=== PATIENT | female | born 1995 | race Caucasian/White ===

== ENCOUNTER 2022-09-13 08:30 | Outpatient (REF) | payer BC, SELFPAY | END 2022-09-13 08:31 | disposition home or self-care (01) | LOC: HO.WFDLDS 08:30 | PROVIDERS: Visit Provider Nurse Practitioner Family | DX: Z00.00 Encounter for general adult medical examination without abnormal findings (principal); Z11.4 Encounter for screening for human immunodeficiency virus [HIV]; E78.00 Pure hypercholesterolemia, unspecified | CPT/HCPCS: 36415; 80053; 80061; 81003; 84443; 85025; 86704; 86706; 86780; 86803; 87340; 87389 ==

== ENCOUNTER 2022-09-27 08:42 | Outpatient (REF) | payer BC, SELFPAY ==
[2022-09-27 14:36] LABS: CT PCR NOT DETECTED (Not Detect.); NG PCR NOT DETECTED (Not Detect.)
== END 2022-09-27 08:43 | disposition home or self-care (01) ==
LOC: HO.WFDLDS 08:42
PROVIDERS: Visit Provider Nurse Practitioner Family
DX: Z13.89 Encounter for screening for other disorder (principal)
CPT/HCPCS: 0353U

== ENCOUNTER 2022-10-01 13:29 | Outpatient (AMB) | payer BC, SELFPAY ==
--- NOTE | 2022-10-01 13:30 | MHC.PC.OV ---
Vital Signs 10/01/22 13:31 Height 5 ft 9 in Weight 203 lb 4 oz BMI 30.0 BP 118/78 Blood Pressure Location Lt brachial Position Sitting Pulse 96 Pulse Source Pulse Oximeter Pulse Oximetry (%) 98 Intake Visit Reasons: 1 mos labs review Intake Note: pt is here for f/u labs Supervisor [employer] Shop Required: No Accompanied by: Self / Same As Patient Allergies Seasonal Allergies Allergy (Intermediate, Verified 10/01/22 13:59) Itchy Eyes Medication List - Last Reconciled 10/01/22 by Adriano Avila CNP levonorgestrel (Mirena) intrauterine metronidazole 0.75% 1 appl topical BID Tobacco use date assessed: 08/31/22 Dental Screening Dental Screen Date: 10/01/22 Did you have a dental visit in the last 12 months?: Yes Did you have a dental problem in the last 6 months where you did not have access to dental care?: No Was dental information given to patient?: Patient has dentist HPI HPI Comments History of Present Illness Details 27-year-old female presents for review of recent blood work. She offers no complaints. She states that she has an appointment with gynecology for Pap smear testing November. [facility] Medical History Asthma High cholesterol Perioral dermatitis Sinusitis Surgical History No pertinent past surgical history Family History Mother Asthma High blood pressure High cholesterol Melanoma Father High blood pressure Maternal Grandmother High blood pressure High cholesterol Paternal Grandmother Lung cancer Maternal Grandfather Cardiovascular disease Paternal Grandfather Cardiovascular disease Family/Other Psychiatric disorder Social History Housing: House Patient Tobacco Use Status: Never used Tobacco e-Cigarette/Vaping Use: Never Used service: No Current occupational status: employed Current occupation: Retail Beauty Specialist Current occupational exposures/hazards: No Cognitive needs: No Hearing needs: No Vision needs: No Questionnaire Thrive Questionnaire Date Thrive assessed: 08/31/22 GIRISH-7 AMB Questionnaire GIRISH-7 Date GIRISH - 7 assessed: 08/31/22 Source: Developed by Drs. Jerardo Murry, Shira Castorena, Jac Ugalde and colleagues, with an educational beatris from [employer]. Review of Systems Const Details: Const Denies chills, Denies fatigue, Denies fever(s), Denies headache(s) and Denies weakness ENT Denies dizziness and Denies headache(s) Card Denies chest pain, Denies lightheadedness, Denies dyspnea and Denies other (Palpitations) Resp Denies cough, Denies dyspnea, Denies wheezing and Denies other ( shortness of breath) GI Denies abdominal pain, Denies melena, Denies hematochezia, Denies change in bowel habits, Denies dyspepsia and Denies nausea Denies hematuria and Denies dysuria Musc Denies abnormal gait, Denies myalgias, Denies arthralgias, Denies numbness and Denies tingling Skin/Breast Denies rash, Denies unusual bruising and Denies wounds Neuro Denies abnormal gait, Denies dizziness, Denies headache(s), Denies memory loss, Denies numbness, Denies Sensory deficit (Neuro), Denies tingling and Denies weakness Psych Denies anxiety and Denies depression Endo Denies fatigue Aller/Immun Denies wheezing Physical exam (Primary Care) Vital Signs: Last Vital Signs Pulse 96 10/01/22 13:31 BP 118/78 10/01/22 13:31 Pulse Ox 98 10/01/22 13:31 BMI result Body Mass Index 30.0 Tobacco/Smoking Status: Tobacco use Status Tobacco use date assessed 08/31/22 10/01/22 13:30 Patient Tobacco Use Status Never used Tobacco 10/01/22 13:30 e-Cigarette/Vaping Use Never Used 10/01/22 13:30 Thrive Assessment: Date of Thrive Assessment Date Thrive assessed 08/31/22 10/01/22 13:30 Const Other: General: no acute distress and well developed Nutritional Appearance: well nourished Orientation/consciousness: patient oriented x3 HENMT Head: Yes normocephalic and Yes atraumatic Eyes General: appearance normal, both eyes and all related structures Pupils: Equal, round and reactive pupils present EOM: EOMs intact bilaterally Resp Effort & Inspection: normal respiratory effort Auscultation: clear to auscultation bilaterally Cardio Rate: regular rate Rhythm: regular rhythm Heart sounds: S1 normal heart sound present, S2 normal heart sound present, no gallops, no murmurs and no rubs GI Palpation (GI): No Abdominal aortic bruit present, Soft to palpation, nontender, No hepatosplenomegaly present and No Rebound tenderness present Auscultation: normal bowel sounds General: Yes no CVA tenderness Back/Spine/Pelvis Back: no CVA tenderness Cervical Spine: cervical ROM normal and No Cervical spine tenderness Thoracic/Lumbar Spine: thoraco-lumbar ROM normal, No pain with thoraco-lumbar ROM, No thoracic spinal tenderness and No lumbar spinal tenderness Extrem General: Yes normal to inspection, No edema and No calf tenderness Skin General: warm and dry. Normal skin color. Normal skin turgor Lesions: no lesions Rashes: no rashes Trauma: no lacerations or abrasions Wounds: no wounds Nails: normal Neuro General: patient oriented x3, gait normal and no focal neuro deficit Cranial nerves: Yes Equal, round and reactive pupils present Cognition (Neuro): normal cognition Gait exam (Neuro): Normal gait present Sensory Exam: No Sensory deficit (Neuro) Psych Affect: normal affect Assessment and Plan Assessment & Plan (1) Elevated fasting glucose: Code(s): R73.01 - Impaired fasting glucose Plan: Recent lab results review with the patient Her fasting glucose is slightly elevated Fasting glucose ordered for repeat Will review result and make changes to her care plan if warranted (2) High cholesterol: Code(s): E78.00 - Pure hypercholesterolemia, unspecified Plan: Total cholesterol and LDL were slightly elevated Advised to limit foods high in saturated fat and avoid foods high trans fat Routine exercise encouraged Encouraged to schedule her next physical for a year from today Return sooner with symptoms or concerns Verbalized understanding and agreed with the plan. Orders: Orders Glucose Fasting Today R73.01 - Impaired fasting glucose Coding Level of Care Code Est Pt Level 3 (45706) Diagnoses Elevated fasting glucose R73.01 High cholesterol E78.00 Time Spent (min) 25
[2022-10-01 13:31] VITALS: BP 118/78; PULSE 96; O2SAT 98
== END 2022-10-01 14:15 | disposition home or self-care (01) ==
PROVIDERS: PCP Nurse Practitioner Family; Visit Provider Nurse Practitioner Family
DX: R73.01 Impaired fasting glucose (principal); E78.00 Pure hypercholesterolemia, unspecified
CPT/HCPCS: 99213

== ENCOUNTER 2022-11-22 13:55 | Outpatient (REF) | payer BC, SELFPAY ==
[2022-11-23 11:38] LABS: BV Int Neg Control Negative (Negative); BV Int Pos Control Positive (Positive)
== END 2022-11-22 13:56 | disposition home or self-care (01) ==
LOC: HO.LNP 13:55
PROVIDERS: PCP Nurse Practitioner Family; Visit Provider Advanced Practice Midwife
DX: Z01.419 Encounter for gynecological examination (general) (routine) without abnormal findings (principal); Z97.5 Presence of (intrauterine) contraceptive device; Z11.3 Encounter for screening for infections with a predominantly sexual mode of transmission; Z79.899 Other long term (current) drug therapy
CPT/HCPCS: 87480; 87510; 87660; 88142

== ENCOUNTER 2022-11-22 13:55 | Outpatient (AMB) | payer BC, SELFPAY ==
[2022-11-22 14:16] VITALS: BP 122/80; BMI 30.6
--- NOTE | 2022-11-22 14:16 | MHC.OFFVIS ---
Intake Vital Signs 11/22/22 14:16 Height 5 ft 9 in Weight 207 lb BMI 30.6 BP 122/80 Intake Visit Reasons: New patient Annual Intake Note: Check strings on IUD. 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 She used to use in NuvaRing before that and pills before that she has not been relieving getting much of of. Just a little bit of pink staining once in a while it correlates with mild abdominal cramping and breast changes so it feels like a version of a.. She is sexually active with 1 partner she recently had some STI testing with her primary care provider and she is open to what ever was not done with him. She believes she is due for Pap smear but she has never had an abnormal 1. She does walking and hiking and swimming in occasionally a spin class for exercise. She feels she is healthy. She does have a maternal aunt had breast cancer at age 40 but she is not sure if she had genetic testing or not she herself works in the [employer] and is fairly well-versed in the testing that is recommended and she will have a conversation with her aunt about whether not she had braca testing [facility] Medical History Asthma High cholesterol Perioral dermatitis Sinusitis Surgical History No pertinent past surgical history Family History (Updated 11/22/22 @ 14:23 by MIKEY Hernandez) Mother Asthma High blood pressure High cholesterol Melanoma Father High blood pressure Maternal Grandmother High blood pressure High cholesterol Cervical cancer Paternal Grandmother Lung cancer Maternal Grandfather Cardiovascular disease Paternal Grandfather Cardiovascular disease Family/Other Psychiatric disorder Maternal Aunt Breast cancer Social History (Updated 11/22/22 @ 14:24 by MIKEY Hernandez) Housing: House Alcohol intake: current Alcohol intake frequency: holidays/special occasions only Patient Tobacco Use Status: Never used Tobacco e-Cigarette/Vaping Use: Never Used service: No Current occupational status: employed Current occupation: Lands Resource Manager Current occupational exposures/hazards: No Cognitive needs: No Hearing needs: No Vision needs: No Female Reproductive History Menstrual Age of Menarche: 8 Duration of menses: 6-7 days control method: progestin IUCD Total pregnancies: 0 Physical Exam Vital Signs: Last Vital Signs BP 122/80 11/22/22 14:16 BMI result Body Mass Index 30.6 Const General: healthy appearing, comfortable, no acute distress, well developed and alert Nutritional Appearance: average body habitus Orientation/consciousness: patient oriented x3 Limitations: no limitations HEENT Head: Yes normocephalic Neck Neck: Yes normal visual inspection Chest Chest palpation & inspection: normal inspection of the chest Breast/axilla inspection: normal inspection of the breasts and normal inspection of the axillae Breast/axilla palpation: normal palpation of the breasts and normal palpation of the axillae Resp Effort & Inspection: normal respiratory effort GI Inspection: Yes normal to inspection, No Abdominal wall edema and No distended Palpation (GI): Soft to palpation and nontender Other: Speculum exam within normal limits discharge is white and scant and normal. Cervix is nulliparous with Mirena strings visible. Uterus is small midposition to anteverted, nontender mobile, adnexa nontender non enlarged very good tone with Kegel. General: Yes bladder normal to palpation External Female Exam: normal external appearance and normal appearance of the urethra Speculum Exam - Vagina: normal appearance of the vagina, normal palpation and normal vaginal discharge Speculum Exam - Cervix: normal appearance of the cervix, normal palpation and nontender Bimanual exam- vagina & uterus: normal bimanual exam, normal palpation, uterine size normal, bladder normal to palpation, consistency normal, normal palpation, uterine mobility normal, uterine shape normal, No Cervical tenderness present, non-tender and no cervical motion tenderness Bimanual Exam- Adnexa, other: normal adnexae, no masses, normal and No adnexal tenderness Neuro General: patient oriented x3 Assessment & Plan Assessment & Plan (1) Screening for STD (sexually transmitted disease): Code(s): Z11.3 - Encounter for screening for infections with a predominantly sexual mode of transmission (2) Pap smear for cervical cancer screening: Code(s): Z12.4 - Encounter for screening for malignant neoplasm of cervix (3) Well woman exam with routine gynecological exam: Code(s): Z01.419 - Encounter for gynecological examination (general) (routine) without abnormal findings (4) Breast cancer screening: Code(s): Z12.39 - Encounter for other screening for malignant neoplasm of breast (5) Presence of 52 mg levonorgestrel-releasing intrauterine device (IUD): Code(s): Z97.5 - Presence of (intrauterine) contraceptive device Plan -----Discussed in this visit the following: healthy balanced diet, regular and consistent exercise, getting recommended health screens, doing the best she can for her particular health concerns, kegel exercises, pap smear screening and followup recommendations, mammography screening and SBE, normal changes in cycles in her life stage--- . Reviewed the changing criteria for length of use that the Mirena can be used and what to watch for in terms of signs and symptoms of returning fertility and that if she desired a replacement at year 5 that should be totally acceptable. Offered STI testing but she had GC chlamydia done with a urine test with her primary but she did except the BV testing which tests for trich Gardnerella and Robina. Pap smear was done reviewed that her next 1 would be due in 3 years and that 1 would be done with Co testing. Discussed self-care. Discussed future childbearing plans she is open to childbearing in future . Discussed that we no longer have a birthing center. And that for first-time mother's she would probably be best served receiving all care where she would deliver. Discussed options in the [facility] Orders: Orders Bacterial Vaginosis Panel Today Z01.419 - Encounter for gynecological examination (general) (routine) without abnormal findings Pap Smear Today Z01.419 - Encounter for gynecological examination (general) (routine) without abnormal findings Coding Level of Care Code New Pt Prev Care [id number]([id number] Diagnoses Screening for STD (sexually transmitted disease) Z11.3 Pap smear for cervical cancer screening Z12.4 Well woman exam with routine gynecological exam Z01.419 Breast cancer screening Z12.39 Presence of 52 mg levonorgestrel-releasing intrauterine device (IUD) Z97.5
== END 2022-11-22 15:06 | disposition home or self-care (01) ==
PROVIDERS: PCP Nurse Practitioner Family; Visit Provider Advanced Practice Midwife
DX: Z01.419 Encounter for gynecological examination (general) (routine) without abnormal findings (principal); Z97.5 Presence of (intrauterine) contraceptive device
CPT/HCPCS: 99385